=== PATIENT | female | born 1955 | race Hispanic/Latino ===

== ENCOUNTER 2021-06-18 23:36 | Emergency (ER) | payer OTHER ==
[~2021-06-18] VITALS: Ht 157.5 cm; Wt 64.4 kg
[2021-06-19] MEDS ORDERED: KETOROLAC 30MG VIAL (30MG/ML) IM ONE (05:30)
[2021-06-19] MEDS ORDERED: ACET1TAB25 PO (06:48)
[2021-06-19 06:56] VITALS: BP 131/89
== END 2021-06-19 07:10 | disposition home or self-care (01) ==
LOC: EDH 23:36
DX: S40.022A Contusion of left upper arm, initial encounter (principal); S20.212A Contusion of left front wall of thorax, initial encounter; E11.9 Type 2 diabetes mellitus without complications; Z79.1 Long term (current) use of non-steroidal anti-inflammatories (NSAID); W18.39XA Other fall on same level, initial encounter; Y93.89 Activity, other specified; Y92.89 Other specified places as the place of occurrence of the external cause; Y99.8 Other external cause status
CPT/HCPCS: 71101; 73060; 96372; 99284; J1885